=== PATIENT | male | born 1980 | race African-American/Black ===

== ENCOUNTER 2024-11-30 13:09 | Emergency (ER) | payer SELFPAY | END 2024-11-30 13:51 | disposition home or self-care (01) | LOC: MADERS 13:09 | DX: J01.90 Acute sinusitis, unspecified (principal); B96.89 Other specified bacterial agents as the cause of diseases classified elsewhere; K08.89 Other specified disorders of teeth and supporting structures | CPT/HCPCS: 36416; 99283 ==